=== PATIENT | male | born 1955 | race Caucasian/White ===

== ENCOUNTER 2016-10-10 10:03 | Inpatient (IN) | payer OTHER ==
--- NOTE | 2016-10-10 10:21 | UCPHY ---
H & P Patient Type: Established Chief Complaint Nursing Narrative: RUQ PAIN SINCE MONDAY, RADIATES ACROSS ABD AND INTO BACK. NAUSEA. NO VOMITING. Time Seen by Provider: 10/10/16 10:19 HPI/ROS: CHIEF COMPLAINT: Abdominal pain HISTORY OF PRESENT ILLNESS: This is a 61-year-old male in general good health who presents at Urgent Care with 4 days of right upper quadrant pain. The pain sometimes radiates to his back, in a corresponding location. The pain has been waxing and waning but today it has been constant and more severe. He has not been able to find a comfortable position. He believes that eating makes the pain worse. He has tried Pepto-Bismol with no relief. He has had some loose stool but is not having frequent bowel movements. He has had mild nausea but no vomiting. He has not had fever. He denies hematuria, dysuria, difficulty initiating urination, or urinary urgency. His appendix has been removed. Recently vacationing in [place]. REVIEW OF SYSTEMS: A ten point review of systems was performed and is negative with the exception of the items mentioned in the HPI. Source: Patient, Family Exam Limitations: No limitations - Medical/Surgical History Hx Asthma: No Hx Chronic Respiratory Disease: No Hx Diabetes: No Hx Cardiac Disease: No Hx Renal Disease: No Hx Cirrhosis: No Hx Alcoholism: No Hx HIV/AIDS: No Hx Splenectomy or Spleen Trauma: No Other PMH: Appendectomy - Family History Significant Family History: No pertinent family hx - Social History Smoking Status: Former smoker Additional Social History: General Appearance: Alert. Vital signs reviewed. * Eyes: Pupils equal and round, no conjunctival injection, no discharge. Anicteric. ENT, Mouth: Mucous membranes are moist, no oropharyngeal erythema or edema. Neck: No lymphadenopathy, supple. Respiratory: Lungs are clear to auscultation; no wheezes, rales, or rhonchi. Cardiovascular: Regular rate and rhythm; no murmur, rub, or gallop. Gastrointestinal: Abdomen is soft and nontender, no masses or organomegaly, bowel sounds normal. Skin: Warm and dry, no rashes on exposed skin, normal color. Back: Nontender to palpation over the thoracolumbar spine. No CVAT. Extremities: No lower extremity edema, no calf tenderness or swelling. Neurological: Alert and oriented. Moving all four extremities easily and equally. Cranial nerves II through XII are examined and are intact (visual acuity not tested). Strength is 5 over 5 bilaterally with testing of all major motor groups. Sensation is intact to light touch over all 4 extremities. Deep tendon reflexes are 2+ in the biceps and knees bilaterally. Gait is normal. [id number] is performed accurately. Psychiatric: Normal affect. - Physical Exam Exam: General Appearance: Alert. Vital signs reviewed. Blood pressure 140/89, heart rate 104 at triage. Eyes: Pupils equal and round, no conjunctival injection, no discharge. Anicteric. ENT, Mouth: Mucous membranes are moist, no oropharyngeal erythema or edema. Neck: No lymphadenopathy, supple. Respiratory: Lungs are clear to auscultation; no wheezes, rales, or rhonchi. Cardiovascular: Regular rate and rhythm, not tachycardic at the time of my exam ; no murmur, rub, or gallop. Gastrointestinal: Abdomen is soft with tenderness in the midepigastrium and right upper quadrant, no guarding, no masses or organomegaly, bowel sounds normal. Skin: Warm and dry, no rashes on exposed skin, normal color. Back: Nontender to palpation over the thoracolumbar spine. No CVAT. Extremities: No lower extremity edema, no calf tenderness or swelling. Neurological: Alert and oriented. Moving all four extremities easily and equally. CASSIE. EOMI. Facial expression symmetric. Tongue midline. Psychiatric: Normal affect. Constitutional: Initial Vital Signs Temperature (C) 36.9 C 10/10/16 10:05 Heart Rate 104 H 10/10/16 10:05 Respiratory Rate 18 10/10/16 10:05 Blood Pressure 140/89 H 10/10/16 10:05 O2 Sat (%) 7 L 10/10/16 10:05 O2 Delivery Mode Room Air Allergies/Adverse Reactions: No Known Allergies Allergy (Unverified 01/27/15 09:04) Home Medications: Medication Instructions Recorded Aspirin [Aspirin 81mg (OTC)] 01/27/15 Medical Decision Making ED Course/Re-evaluation: 61-year-old male with right upper quadrant midepigastric pain. My initial diagnostic impression was that this was likely biliary colic or kidney stone. He initially received 1 L of IV normal saline and 0.5 mg Dilaudid with good pain relief. Laboratories [place] [address]. Bilirubin was elevated over 3. He had a bilirubin checked a couple of months ago and it has increased since then. Liver functions are normal. Lipase is 468. Gallbladder ultrasound was performed was reported to me as normal with no evidence of cholelithiasis or cholecystitis. He continued with right upper quadrant abdominal pain and was given a 2nd dose of 0.[address] scan of the abdomen was obtained without contrast. No ureterolithiasis was seen. Was evidence of pancreatitis. The common bile duct appeared normal. No other abnormalities that would account for his pain. While undergoing evaluation in Urgent Care developed a temperature of 38.1. He was given Tylenol. IV fluids were continued. He was not hypotensive. He did not have tachycardia or tachypnea. He does not meet sepsis criteria. When he developed fever the possibility of ascending cholangitis arose. He has fever no abdominal pain, no jaundice. He does have elevation in his bilirubin but no elevation in his transaminases. There is nothing on his imaging that would suggest biliary obstruction, making a diagnosis of ascending cholangitis unlikely. He continued with waxing and waning abdominal pain. He underwent serial abdominal exams while in Urgent Care. At no time did he have peritoneal signs. He is being admitted to [facility] inpatient. Ambulance transfer has been arranged. Vital signs shortly after 3 PM are a blood pressure of 124/53, temperature 36.9 , heart rate 82, and room air pulse ox 97%. Abdominal exam shows continued tenderness in the midepigastrium and right upper quadrant, no guarding. Differential Diagnosis: Abdominal pain including but not limited to appendicitis, cholecystitis, ascending cholangitis, pancreatitis, gastritis, ureterolithiasis, and urinary tract infection. - Data Points Laboratory Results: Laboratory Results 10/10/16 10:30 10/10/16 10:30 10/10/16 10:30 WBC 14.10 H 10^3/uL (3.80-9.50) RBC 4.79 10^6/uL (4.40-6.38) Hgb 15.6 g/dL (13.7-17.5) Hct 42.9 % (40.0-51.0) MCV 89.6 fL (81.5-99.8) MCH 32.6 pg (27.9-34.1) MCHC 36.4 g/dL (32.4-36.7) RDW 12.3 % (11.5-15.2) Plt Count 200 10^3/uL (150-400) MPV 10.2 fL (8.7-11.7) Neut % (Auto) 80.2 H % (39.3-74.2) Lymph % (Auto) 8.9 L % (15.0-45.0) [place] % (Auto) 9.3 % (4.5-13.0) Eos % (Auto) 0.9 % (0.6-7.6) Baso % (Auto) 0.3 % (0.3-1.7) Nucleat RBC Rel Count 0.0 % (0.0-0.2) Absolute Neuts (auto) 11.33 H 10^3/uL (1.70-6.50) Absolute Lymphs (auto) 1.25 10^3/uL (1.00-3.00) Absolute Monos (auto) 1.31 H 10^3/uL (0.30-0.80) Absolute Eos (auto) 0.12 10^3/uL (0.03-0.40) Absolute Basos (auto) 0.04 10^3/uL (0.02-0.10) Absolute Nucleated RBC 0.00 10^3/uL (0-0.01) Immature Gran % 0.4 % (0.0-1.1) Immature Gran # 0.05 10^3/uL (0.00-0.10) Sodium 138 mEq/L (134-144) Potassium 4.1 mEq/L (3.5-5.2) Chloride 100 mEq/L (97-110) Carbon Dioxide 25 mEq/l (22-31) Anion Gap 13 mEq/L (8-16) BUN 9 mg/dL (7-23) Creatinine 0.8 mg/dL (0.7-1.3) Estimated GFR > 60 Glucose 117 H mg/dL (70-100) Calcium 9.7 mg/dL (8.5-10.4) Total Bilirubin 3.2 H mg/dL (0.1-1.4) Conjugated Bilirubin 0.4 mg/dL (0.0-0.5) Unconjugated Bilirubin 2.8 H mg/dL (0.0-1.1) AST 26 IU/L (17-59) ALT 36 IU/L (21-72) Alkaline Phosphatase 93 IU/L (38-126) Total Protein 7.9 g/dL (6.3-8.2) Albumin 4.2 g/dL (3.5-5.0) Lipase 468.0 H IU/L (23-300) Medications Given: Discontinued Medications Acetaminophen (Tylenol) 650 mg PO EDNOW ONE Stop: 10/10/16 13:22 Last Admin: 10/10/16 13:12 Dose: 650 mg Hydromorphone HCl (Dilaudid) 0.5 mg IVP EDNOW ONE Stop: 10/10/16 10:50 Last Admin: 10/10/16 10:58 Dose: 0.5 mg Hydromorphone HCl (Dilaudid) 0.5 mg IVP EDNOW ONE Stop: 10/10/16 12:26 Last Admin: 10/10/16 13:12 Dose: 0.5 mg Hydromorphone HCl (Dilaudid) 0.5 mg IVP EDNOW ONE Stop: 10/10/16 13:52 Last Admin: 10/10/16 13:55 Dose: 0.5 mg Sodium Chloride (Ns) 1,000 mls @ 0 mls/hr IV ONCE ONE PRN Reason: Wide Open Stop: 10/10/16 10:40 Last Admin: 10/10/16 10:40 Dose: 1,000 mls Ondansetron HCl (Zofran) 4 mg IVP EDNOW ONE Stop: 10/10/16 10:59 Last Admin: 10/10/16 11:03 Dose: 4 mg Departure - Departure Disposition: [facility] Acute Clinical Impression: Pancreatitis Qualifiers: Chronicity: acute Pancreatitis type: unspecified pancreatitis type Acute pancreatitis complication: unspecified Qualifier Code: (K85.90) Acute pancreatitis without necrosis or infection, unspecified Condition: Good - PQRS PQRS Measurement: Does not apply.
[2016-10-10] MEDS ORDERED: NS 1,000 ML IV ONE (10:39)
[2016-10-10 10:43] LABS: % IMMATURE GRANULYOCYTES 0.4 % (0.0-1.1); ABSOLUTE IMMATURE GRANULOCYTES 0.05 10^3/uL (0.00-0.10); ADD DIFF? NO; ADD MORPH? NO; ADD SCAN? NO; ATYPICAL LYMPHOCYTE FLAG 0 (0-99); FRAGMENT RBC FLAG 0 (0-99); HEMATOCRIT 42.9 % (40.0-51.0); HEMOGLOBIN 15.6 g/dL (13.7-17.5); LEFT SHIFT FLG 0 (0-99); LIPEMIA HEMOLYSIS FLAG 90 (0-99); MEAN CELL HEMOGLOBIN 32.6 pg (27.9-34.1); MEAN CELL HEMOGLOBIN CONCENTR. 36.4 g/dL (32.4-36.7); MEAN CELL VOLUME 89.6 fL (81.5-99.8); MEAN PLATELET VOLUME 10.2 fL (8.7-11.7); PLATELET CLUMPS FLAG 0 (0-99); PLATELET COUNT 200 10^3/uL (150-400); RED BLOOD CELL COUNT 4.79 10^6/uL (4.40-6.38); RED CELL DISTRIBUTION WIDTH 12.3 % (11.5-15.2)
[2016-10-10] MEDS ORDERED: HYDROmorphONE/DILAUDID 1 MG/ML SYR IVP ONE ×3 (10:49→13:51)
[2016-10-10] MEDS ORDERED: ONDANSETRON 4 MG/2 ML VIAL IVP ONE (10:58)
[2016-10-10 10:59] LABS: ALANINE AMINOTRANSFERASE 36 IU/L (21-72); ALBUMIN 4.2 g/dL (3.5-5.0); ALKALINE PHOSPHATASE 93 IU/L (38-126); ANION GAP 13 mEq/L (8-16); ASPARTATE AMINOTRANSFERASE 26 IU/L (17-59); BILIRUBIN,TOTAL 3.2 mg/dL (0.1-1.4); BILIRUBIN-CONJUGATED 0.4 mg/dL (0.0-0.5); BILIRUBIN-UNCONJUGATED 2.8 mg/dL (0.0-1.1); CALCIUM 9.7 mg/dL (8.5-10.4); CARBON DIOXIDE 25 mEq/l (22-31); CHLORIDE 100 mEq/L (97-110); CREATININE 0.8 mg/dL (0.7-1.3); GLOMERULAR FILTRATION RATE > 60; GLUCOSE 117 mg/dL (70-100); POTASSIUM 4.1 mEq/L (3.5-5.2); SODIUM 138 mEq/L (134-144); TOTAL PROTEIN 7.9 g/dL (6.3-8.2)
--- NOTE | 2016-10-10 12:11 | US ---
Limited Right Upper Quadrant Ultrasound History: Right upper quadrant pain. Comparison: Abdominal ultrasound November 29, 2013. Findings: The liver is diffusely echogenic with no focal hepatic masses. The right lobe of the liver measures 20.1 cm (previously 17.6 cm). There is no intrahepatic biliary dilatation. Portions of the common duct are obscured by anatomy and overlying bowel gas. The visible common bile duct measures 4 mm and is normal. The gallbladder is normal. The right kidney measures 12.1 cm and has normal echotex ture and contour without hydronephrosis. The visible aorta is normal caliber with extensive obscurati on of the aorta by overlying bowel gas. The visible portions of the pancreas are normal with limited visualization of the pancreatic head and tail. Impression: 1. Limited study with no acute findings in the abdomen. 2. Fatty liver with elongation of the right hepatic lobe, suggesting hepatomegaly. Findings discussed with Dr. Luzmaria Bingham on October 10, 2016 at 1205 hours.
[2016-10-10] MEDS ORDERED: IOPAMIDOL (ISOVUE-300) 100 ML BTL IV ONE (12:20)
--- NOTE | 2016-10-10 13:17 | CT ---
CT Abdomen and Pelvis Unenhanced (Renal Stone Protocol) Indication: Right flank pain. History prior appendectomy. Comparison: Right upper quadrant ultrasound same day at 1146 hours. Technique: Axial unenhanced CT imaging was performed through the abdomen and pelvis without contrast . Dose reduction techniques were utilized. Findings: Abdomen: The lung bases are clear. There is mild diffuse fatty infiltration of the liver. There is moderate peripancreatic stranding, aviles ggesting pancreatitis, with no focal fluid collections. The gallbladder, spleen, adrenals, and kidney s have a normal unenhanced appearance. No renal or ureteral stones are identified. Incidental note is made of anterior orientation of the left renal pelvis. Mild sigmoid diverticulosis is present without evidence of diverticulitis. Moderate stool is present in the proximal colon. The colon and small bowel are normal caliber. A moderate fat containing perium bilical hernia is present. The aorta is normal caliber with mild atherosclerosis. Mild degenerative change is present in the spine. Pelvis: No bladder or distal ureteral calcifications are identified. There is no free fluid. Bridgi ng osteophytes span the sacroiliac joints with partial fusion of the sacroiliac joints. Impression: 1. Pancreatitis. 2. Mild fatty infiltration of the liver. 3. Partial fusion of the sacroiliac joints. 4. Additional findings as above. Findings discussed with Dr. Luzmaria Bingham on October 10, 2016 at 1306 hours. Attention: This CT examination is specifically designed to evaluate patients who are clinically susp ected of having acute obstructive uropathy. This examination does not use radiographic contrast, and as such, provides only a limited evaluation of the abdomen, pelvis and retroperitoneum. If there is further clinical suspicion for pathological conditions other than obstructive uropathy, a complete C T evaluation of the abdomen and pelvis utilizing intravenous and oral contrast should be considered.
[2016-10-10] MEDS ORDERED: ACETAMINOPHEN 325 MG TAB PO ONE (13:21)
[2016-10-10 14:11] LABS: COLOR YELLOW; LEUKOCYTE ESTERASE,URINE NEGATIVE (NEGATIVE); NITRITE,URINE NEGATIVE (NEGATIVE)
[2016-10-10 14:22] LABS: BACTERIA 1+ /hpf (NONE SEEN); MUCUS TRACE /lpf (NONE-1+); WBC,URINE 0-1 /hpf (0-3)
[2016-10-10] MEDS ORDERED: ONDANSETRON 4 MG/2 ML VIAL IVP PRN (17:38)
[2016-10-10] MEDS ORDERED: ONDANSETRON DISINTEGRATING 4 MG TAB PO PRN (17:38)
[2016-10-10] MEDS ORDERED: HYDROmorphONE/DILAUDID 1 MG/ML SYR IVP PRN ×3 (17:41→22:06)
[2016-10-10] MEDS ORDERED: Herbals/Supplements -Info Only PO PRN (17:42)
[2016-10-10] MEDS: ACETAMINOPHEN 325 MG TAB PO PRN (18:45)
[2016-10-10] MEDS ORDERED: NS 1,000 ML IV SCH (18:45)
[2016-10-10 18:50] LABS: HEMATOCRIT 40.3 % (40.0-51.0); HEMOGLOBIN 14.6 g/dL (13.7-17.5); MEAN CELL HEMOGLOBIN 33.2 pg (27.9-34.1); MEAN CELL HEMOGLOBIN CONCENTR. 36.2 g/dL (32.4-36.7); MEAN CELL VOLUME 91.6 fL (81.5-99.8); RED BLOOD CELL COUNT 4.4 10^6/uL (4.40-6.38); RED CELL DISTRIBUTION WIDTH 12.3 % (11.5-15.2)
--- NOTE | 2016-10-10 19:05 | GHP ---
[f rep st] HISTORY AND PHYSICAL DATE OF ADMISSION: 10/10/2016 CHIEF COMPLAINT: Pancreatitis, abdominal pain. HISTORY OF PRESENT ILLNESS: Patient is a 61-year-old male with remote history of Graves disease, presenting with significant abdominal pain, loose stools since Monday. He and his recently were in [place] celebrating their anniversary. He started feeling poorly on Monday afternoon. [place] bad. Began having sharp, crampy, achy abdominal pain diffusely. The pain was greater in the right upper quadrant with radiation to the back. He began having what he describes as the shakes or shivering Monday night. These have been occurring intermittently. He had a temperature of 101 at home. He has had some sweats. He has had dry heaving. Loose stools since Monday. No melena. No bright red blood. Reports has had a poor appetite and no p.o. intake since Monday morning. He states he ate out at nice restaurants. He did drink more alcohol than normal. Monday night, he had 4 vodka drinks, in which he normally drinks 1 to 2 when he does drink. REVIEW OF SYSTEMS: A complete 10-point review of systems negative except as noted in HPI. PAST MEDICAL HISTORY: Graves disease at age 29, no longer treated. PAST SURGICAL HISTORY: Appendectomy. SOCIAL HISTORY: Lives in [place] with his , been 34 years, has 1 child. SOCIAL HISTORY: Drinks 1 to 2 alcoholic drinks socially. No tobacco. Smokes marijuana at night for sleep. FAMILY HISTORY: Brother had his gallbladder removed, does not know if he had stones or not. Father had heart surgery, of pulmonary fibrosis. MEDICATIONS: No medications. ALLERGIES: No known drug allergies. PHYSICAL EXAMINATION: VITAL SIGNS: Temperature 36.9, blood pressure 158/78, heart rate 80s, respirations 14, 97% on room air. GENERAL: Patient is an overweight white male, in no acute distress, lying in bed. HEENT: PERRLA. Dry mucous membranes. Oropharynx clear. CV: Regular rate and rhythm. No murmurs, gallops, or rubs. LUNGS: Clear to auscultation bilaterally. ABDOMEN : Diffusely tender, especially in the epigastric region and left upper quadrant. No rebound. Positive bowel sounds throughout. : No suprapubic tenderness. MUSCULOSKELETAL: 5/5 upper and lower extremities. SKIN: Warm, dry. No rash. NEURO: 2 through 12 intact. PSYCHIATRIC: Alert and oriented x3. LABORATORY DATA: WBC 14, hemoglobin 15, hematocrit 42, platelets 200. D-dimer is negative. Sodium 138, potassium 4.1, chloride 100, carbon dioxide 25, BUN 9 , creatinine 0.8, glucose 117. Total bilirubin 3.2, conjugated 0.4, unconjugated 2.8. AST 26, ALT 36, total protein 7.9, albumin 4.2, lipase 468. UA: +1 bacteria, 0-1 whites. Influenza negative. Abdominal ultrasound: Limited study. Fatty liver with elongation of the right hepatic lobe. Abdominal CT: There is moderate peripancreatic stranding suggesting pancreatitis with no fluid collections. No stone renal stones. Mild sigmoid diverticulosis without evidence of diverticulitis. ASSESSMENT AND PLAN: 1. Acute abdominal pain: Suspect this is secondary to pancreatitis. Lipase is mildly elevated with evidence of stranding on imaging. Patient does report having increased alcoholic intake while vacationing. No evidence of stones. We will check lipids and triglycerides. Treat supportively with IV fluids, n.p.o., p.r.n. IV opioids and antiemetics. 2. Leukocytosis. Suspect stress response with inflammation. However, he has been reporting fevers at home. We will check a stool panel and Clostridium difficile. No antibiotics at this time. 3. Hyperbilirubinemia: Secondary to a GI process. We will repeat in the morning. 4. Pyuria: Urinary tract infection with positive bacteria. Patient denies symptoms. A urine culture is pending. 5. Diet: N.p.o., IV fluids. 6. DVT prophylaxis: Medium high risk, Lovenox. 7. Patient warrants inpatient admission given acute pancreatitis requiring IV fluids, IV opioids. /[id number]/MODL MTDD
[2016-10-10] MEDS ORDERED: HYDROmorphONE/DILAUDID 2 MG/ML SYR IVP PRN (20:52)
--- NOTE | 2016-10-10 21:23 | HOSPPROG ---
Hospitalist Progress Note Assessment/Plan: Was called by RN. Patient fevered to 101. Plan: Check blood cultures. No e/o abscess on CT, but will treat empirically with Ertapenem. Awaiting stool cultures. IVFs Objective: Vital Signs Temp Pulse Resp BP Pulse Ox 38.8 C H 97 16 113/67 93 10/10/16 20:33 10/10/16 20:33 10/10/16 20:33 10/10/16 20:33 10/10/16 20:33 Laboratory Results 10/10/16 18:33 10/09/16 10/10/16 10/11/16 05:59 05:59 05:59 Intake Total 1000 Balance 1000 ICD10 Worksheet Patient Problems: Problems Problem Status Diagnosed Pancreatitis Acute
[2016-10-10] MEDS: ERTAPENEM 1 GM in NS 100 ML IV SCH (22:18)
[2016-10-11] MEDS: ACETAMINOPHEN 325 MG TAB PO PRN ×3 (01:33→13:30)
[2016-10-11 06:20] LABS: ALANINE AMINOTRANSFERASE 39 IU/L (21-72); ALBUMIN 3.6 g/dL (3.5-5.0); ALKALINE PHOSPHATASE 69 IU/L (38-126); ANION GAP 12 mEq/L (8-16); ASPARTATE AMINOTRANSFERASE 21 IU/L (17-59); BILIRUBIN,TOTAL 3.9 mg/dL (0.1-1.4); CALCIUM 8.5 mg/dL (8.5-10.4); CARBON DIOXIDE 24 mEq/l (22-31); CHLORIDE 104 mEq/L (97-110); CHOLESTEROL 143 mg/dL (140-220); CHOLESTEROL/HDL RATIO 3.25 RATIO (1.00-4.97); CREATININE 0.8 mg/dL (0.7-1.3); GLOMERULAR FILTRATION RATE > 60; GLUCOSE 96 mg/dL (70-100); HIGH DENSITY LIPOPROTEIN 44 mg/dL (40-65); LDL/HDL RATIO 1.91 RATIO (1.00-3.64); LOW DENSITY LIPOPROTEIN 84 mg/dL (80-100); NON-HIGH DENSITY LIPOPROTEIN 99 mg/dL (90-129); POTASSIUM 4.2 mEq/L (3.5-5.2); SODIUM 140 mEq/L (134-144); TOTAL PROTEIN 6.6 g/dL (6.3-8.2); TRIGLYCERIDE 79 mg/dL (40-150); VERY LOW DENSITY LIPOPROTEINS 15 mg/dL (8-25)
[2016-10-11 07:54] LABS: BILIRUBIN-UNCONJUGATED 2.9 mg/dL (0.0-1.1)
[2016-10-11] MEDS: ERTAPENEM 1 GM in NS 100 ML IV SCH (08:58)
[2016-10-11] MEDS: ENOXAPARIN 40 MG/0.4 ML SYR SC SCH (08:58)
--- NOTE | 2016-10-11 11:41 | HOSPPROG ---
Hospitalist Progress Note Assessment/Plan: Mark Hodges is a 61 y/o male who presented to the ER with abdominal pain and loose stools since Monday. Abdominal CT shows moderate peripancreatic stranding suggesting pancreatitis. No fluid collections, no stones. Last night he developed a fever, and was started on Ertapenem. Urine cx and blood cx are pending. Today is my first encounter w the patient/ chart reviewed. #. Acute abdominal pain/likely pancreatitis * lipase not that elevated * CT indicates moderate pancreatitis * continue supportive treatment with IV hydration and pain medications * triglycerides are stable/ doesn't drink on a regular basis, drank more this weekend * patient describes 'colicky' type of pain/ and patient are concerned it's his gallbladder/ CT shows this being stable/ will get a HIDA scan #. Fever with leukocytosis * started on Ertapenem prophylactic * follow blood cx and urine cx and stool cx #.Hyperbilirubinemia * likely [place] #. Pyuria * no s/sx of UTI #. DVT prophylaxis: LMWH #. Plan will need another midnight stay for treatment/ get HIDA scan/ trial of cl liquids (explained to patient if his pain worsens, stop eating) Repeat labs in the morning. Subjective: Mark said his pain is better since Monday night, but not significantly better since yesterday. Objective: Vital Signs Temp Pulse Resp BP Pulse Ox 37.6 C 82 18 125/71 H 92 10/11/16 11:13 10/11/16 11:13 10/11/16 11:13 10/11/16 11:13 10/11/16 11:13 Laboratory Results 10/10/16 18:33 10/11/16 05:02 10/10/16 10/11/16 10/12/16 05:59 05:59 05:59 Intake Total 1000 Output Total 150 Balance 850 - Physical Exam Constitutional: uncomfortable, No not in pain Ears, Nose, Mouth, Throat: hearing normal Cardiovascular: regular rate and rhythym, no murmur, rub, or gallop Respiratory: no respiratory distress Gastrointestinal: normoactive bowel sounds, tenderness (ruq/ describes pain as wrapping), No guarding, No rebound Skin: warm, normal color Musculoskeletal: no muscle tenderness Neurologic: AAOx3 Psychiatric: interacting appropriately ICD10 Worksheet Patient Problems: Problems Problem Status Onset Pancreatitis Acute
[2016-10-11] MEDS: NS 1,000 ML IV SCH (12:58)
[2016-10-11] MEDS ORDERED: KETOROLAC 15 MG/1 ML SDV IVP ONE ×2 (14:09→20:16)
[2016-10-12] MEDS: ACETAMINOPHEN 325 MG TAB PO PRN (03:32)
[2016-10-12] MEDS: KETOROLAC 30 MG/1 ML SDV IVP PRN ×3 (03:53→18:32)
[2016-10-12] MEDS: NS 1,000 ML IV SCH ×3 (03:56→22:54)
[2016-10-12 05:41] LABS: % IMMATURE GRANULYOCYTES 0.5 % (0.0-1.1); ABSOLUTE IMMATURE GRANULOCYTES 0.06 10^3/uL (0.00-0.10); ADD DIFF? NO; ADD MORPH? NO; ADD SCAN? NO; ATYPICAL LYMPHOCYTE FLAG 0 (0-99); FRAGMENT RBC FLAG 0 (0-99); HEMATOCRIT 34.4 % (40.0-51.0); HEMOGLOBIN 12.3 g/dL (13.7-17.5); LEFT SHIFT FLG 0 (0-99); LIPEMIA HEMOLYSIS FLAG 90 (0-99); MEAN CELL HEMOGLOBIN 32.7 pg (27.9-34.1); MEAN CELL HEMOGLOBIN CONCENTR. 35.8 g/dL (32.4-36.7); MEAN CELL VOLUME 91.5 fL (81.5-99.8); MEAN PLATELET VOLUME 10.4 fL (8.7-11.7); PLATELET CLUMPS FLAG 0 (0-99); PLATELET COUNT 154 10^3/uL (150-400); RED BLOOD CELL COUNT 3.76 10^6/uL (4.40-6.38); RED CELL DISTRIBUTION WIDTH 12.2 % (11.5-15.2)
[2016-10-12 06:00] LABS: ALANINE AMINOTRANSFERASE 33 IU/L (21-72); ALBUMIN 3.3 g/dL (3.5-5.0); ALKALINE PHOSPHATASE 70 IU/L (38-126); ANION GAP 9 mEq/L (8-16); ASPARTATE AMINOTRANSFERASE 17 IU/L (17-59); BILIRUBIN,TOTAL 2.1 mg/dL (0.1-1.4); BILIRUBIN-CONJUGATED 0.6 mg/dL (0.0-0.5); BILIRUBIN-UNCONJUGATED 1.5 mg/dL (0.0-1.1); CALCIUM 8.6 mg/dL (8.5-10.4); CARBON DIOXIDE 23 mEq/l (22-31); CHLORIDE 105 mEq/L (97-110); CREATININE 0.7 mg/dL (0.7-1.3); GLOMERULAR FILTRATION RATE > 60; GLUCOSE 88 mg/dL (70-100); POTASSIUM 4.1 mEq/L (3.5-5.2); SODIUM 137 mEq/L (134-144); TOTAL PROTEIN 6.3 g/dL (6.3-8.2)
[2016-10-12] MEDS: ENOXAPARIN 40 MG/0.4 ML SYR SC SCH (09:06)
[2016-10-12] MEDS: ERTAPENEM 1 GM in NS 100 ML IV SCH (09:06)
--- NOTE | 2016-10-12 15:05 | HOSPPROG ---
Hospitalist Progress Note Assessment/Plan: Mark Hodges is a 61 y/o male who presented to the ER with abdominal pain and loose stools since Monday. Abdominal CT shows moderate peripancreatic stranding suggesting pancreatitis. No fluid collections, no stones. Fever, and was started on Ertapenem. Urine cx and blood cx are negative. Today is my first encounter w the patient/ chart reviewed. #. Acute abdominal pain/likely pancreatitis * lipase not that elevated * CT indicates moderate pancreatitis * continue supportive treatment with IV hydration and pain medications * triglycerides are stable/ doesn't drink on a regular basis, drank more this weekend * patient describes 'colicky' type of pain/ CT shows this being stable/HIDA scan normal * continue NPO and supportive care #. Fever with leukocytosis * on Ertapenem prophylactic * follow blood cx and urine cx #.Hyperbilirubinemia * likely [place] #. Pyuria * no s/sx of UTI #. DVT prophylaxis: LMWH #. Plan will need another midnight stay for treatment/ trial of cl liquids did not go well on increased patient's abdominal pain(explained to patient if his pain worsens, stop eating) continue bowel rest Subjective: Feeling better today than yesterday. However says increased abdominal pain with of oral intake. Feels unable to discharge home given continued abdominal pain. Objective: Vital Signs Temp Pulse Resp BP Pulse Ox 36.9 C 80 12 143/67 H 97 10/12/16 08:07 10/12/16 08:07 10/12/16 08:07 10/12/16 08:07 10/12/16 08:07 Laboratory Results 10/12/16 05:17 10/12/16 05:17 10/11/16 10/12/16 10/13/16 05:59 05:59 05:59 Intake Total 1000 1120 Output Total 150 200 Balance 850 920 - Physical Exam Constitutional: no apparent distress, appears nourished, uncomfortable Eyes: PERRL, anicteric sclera, EOMI Ears, Nose, Mouth, Throat: moist mucous membranes, hearing normal, ears appear normal Cardiovascular: regular rate and rhythym, No JVD, No edema Respiratory: no respiratory distress, clear to auscultation, reduced air movement Gastrointestinal: tenderness, No ascites, No guarding Skin: warm, normal color, No erythema Musculoskeletal: normal joint ROM, no joint effusions, generalized weakness Neurologic: AAOx3 Psychiatric: interacting appropriately, not anxious, not encephalopathic ICD10 Worksheet Patient Problems: Problems Problem Status Onset Pancreatitis Acute
[2016-10-12 22:51] VITALS: O2SAT 94
[2016-10-13] MEDS: NS 1,000 ML IV SCH (04:41)
[2016-10-13] MEDS ORDERED: VANCOMYCIN 125 MG/2.5 ML UDL PO SCH (06:43)
[2016-10-13 07:50] VITALS: BP 153/83; PULSE 74; RESP 18; TEMP 97.8
[2016-10-13] MEDS: ERTAPENEM 1 GM in NS 100 ML IV SCH (10:20)
[2016-10-13] MEDS: ENOXAPARIN 40 MG/0.4 ML SYR SC SCH (10:20)
--- NOTE | 2016-10-13 13:26 | GDS ---
[f rep st] DISCHARGE SUMMARY DISCHARGE DIAGNOSES: 1. Pancreatitis with acute abdominal pain. 2. Fever with leukocytosis. 3. Hyperbilirubinemia. 4. Pyuria. STUDIES AND PROCEDURES DONE: 1. CT of the abdomen and pelvis noting pancreatitis. 2. Abdominal ultrasound with fatty liver. 3. HIDA scan. PHYSICAL EXAM: GENERAL: The patient is alert. VITAL SIGNS: Afebrile at 36.6, pulse is 74, respir atory rate is 18, blood pressure is 153/83, saturating 94% on room air. I have seen and evaluated santana kinsey patient on the day of discharge. HOSPITAL COURSE: The patient is a 61-year-old male, who presented to the emergency room with compla ints of abdominal pain. He was evaluated and diagnosed with: 1. Pancreatitis. During this hospitalization, he was treated with bowel rest and supportive manage ment. He is able to tolerate liquids today and continues to have some mild abdominal pain with dist ention, however had a bowel movement 1 day prior and feels significantly better. I have instructed him to continue bowel rest in the outpatient setting and maintain hydration. He is in agreement wit h this plan. We reviewed a low-fat diet, as well as his need to return to the emergency room if his symptoms do not completely resolve in the next 36-48 hours. He is also in agreement with this plan . 2. Fever with leukocytosis. This has resolved. Blood cultures and urine cultures are negative. 3. Hyperbilirubinemia. The patient likely has a diagnosis of Gilbert disease. His HIDA scan is es sentially within normal limits. 4. Pyuria. He is asymptomatic with no complaints. Urine culture demonstrates no growth. 5. Positive Clostridium difficile. I suspect this is a false result given the fact that the patien t's stool was formed. He has not had diarrhea for 2 days. He does not have increasing abdominal di stention or discomfort. He is feeling significantly better and is eager to be discharged home. DISPOSITION: The patient will be discharged home independently with his . I have instructed priya m at length that he needs to return to the emergency room if his abdominal pain becomes worse, he do es not continue to have bowel movements, and he is not able to tolerate a regular diet. He is in ag reement with this plan and understands the importance of returning to the emergency room if he does not continue to improve. I have spent greater than 35 minutes in the care, coordination, and management of this patient's dis position. DISCHARGE MEDICATIONS: He has been provided a prescription for Ultram. FOLLOWUP: Will be with his primary care physician, Dr. Salvador. /[id number]/MODL
== END 2016-10-13 12:29 | disposition home or self-care (01) | DRG 439 ==
LOC: CED 10:03 → CEDHOLD 13:37 → F3E 16:15
PROVIDERS: ADMIT Internal Medicine; ATTEND Internal Medicine
DX: K85.90 Acute pancreatitis without necrosis or infection, unspecified (principal); N39.0 Urinary tract infection, site not specified; B96.89 Other specified bacterial agents as the cause of diseases classified elsewhere; E80.6 Other disorders of bilirubin metabolism; Z87.891 Personal history of nicotine dependence
CPT/HCPCS: 74176-PO; 76705-PO; 80048-PO; 80076-PO; 81003-PO; 81015-PO; 83690-PO; 85025-PO; 85378-PO; 87400-PO; A9537; J1170; J1335; J1650; J1885; J2405; Q9967